=== PATIENT | male | born 1950 | race Caucasian/White ===

== ENCOUNTER 2018-02-20 12:06 | Inpatient (IN) | payer OTHER ==
[~2018-02-20] VITALS: Ht 177.8 cm; Wt 73.0 kg
[2018-02-20 12:22] VITALS: Ht 177.8 cm; Wt 73.0 kg
[2018-02-20 12:51] LABS: BASOPHIL % 0.2 % (0-2); PLATELET COUNT 155 x10^3mcL (130-400)
[2018-02-20 12:54] LABS: RED CELL DISTRIBUTION WIDTH 15.4 % (11.5-14.5)
[2018-02-20 12:57] LABS: CALCIUM 8.2 mg/dL (8.5-10.1); CARBON DIOXIDE 24.4 mmol/L (21-32); CHLORIDE SERUM 109 mmol/L (98-107); CREATININE SERUM 1.2 mg/dL (0.7-1.3); GFR1 > 60 mL/min; GLUCOSE SERUM 105 mg/dL (74-106); POTASSIUM SERUM 4.5 mmol/L (3.5-5.1); SODIUM SERUM 142 mmol/L (136-145)
[2018-02-20 13:02] LABS: ALKALINE PHOSPHATASE 75 U/L (46-116); ALT/SGPT 80 U/L (16-63); AST/SGOT 46 U/L (15-37); BILIRUBIN TOTAL 1.1 mg/dL (0.20-1.00)
[2018-02-20 13:06] LABS: ALBUMIN 2.9 g/dL (3.4-5.0); TOTAL PROTEIN, SERUM 5.7 g/dL (6.4-8.2)
[2018-02-20] MEDS ORDERED: ASPIR LOW81 MG PO (13:17)
[2018-02-20] MEDS ORDERED: NOR10 PO (13:17)
[2018-02-20] MEDS ORDERED: ATROVENT H0.017 MG/1 (13:17)
[2018-02-20] MEDS ORDERED: COLACE100 MG PO (13:18)
[2018-02-20] MEDS ORDERED: ARTHRITIS PAI42.5 GM (13:18)
[2018-02-20] MEDS ORDERED: FIBER LAX625 MG PO (13:19)
[2018-02-20] MEDS ORDERED: DULERA1 AR3 INH (13:19)
[2018-02-20] MEDS ORDERED: PROSCAR5 MG PO (13:20)
[2018-02-20] MEDS ORDERED: NAPROSYN500 MG PO (13:20)
[2018-02-20] MEDS ORDERED: FLO4 PO (13:20)
[2018-02-20] MEDS ORDERED: XOPENEX1.25 MG/3 (13:21)
[2018-02-20 15:00] VITALS: BP 114/78
[2018-02-20 15:01] VITALS: BP 124/84
[2018-02-20 16:40] VITALS: BP 114/84
[2018-02-20 21:10] VITALS: BP 113/82
[2018-02-21 05:53] VITALS: BP 122/85
[2018-02-21 06:27] LABS: PLATELET COUNT 179 x10^3mcL (130-400)
[2018-02-21 06:39] LABS: CALCIUM 8.3 mg/dL (8.5-10.1); CARBON DIOXIDE 21.3 mmol/L (21-32); CHLORIDE SERUM 109 mmol/L (98-107); GFR1 > 60 mL/min; GLUCOSE SERUM 144 mg/dL (74-106); POTASSIUM SERUM 4.3 mmol/L (3.5-5.1); SODIUM SERUM 141 mmol/L (136-145)
[2018-02-21 06:44] LABS: BASOPHIL % 0 % (0-2); RED CELL DISTRIBUTION WIDTH 15.1 % (11.5-14.5)
[2018-02-21 11:38] VITALS: BP 118/77
[2018-02-21 18:24] VITALS: BP 115/81
[2018-02-21 21:02] VITALS: BP 113/71
[2018-02-22 05:28] VITALS: BP 123/88
[2018-02-22 08:57] VITALS: BP 110/82
[2018-02-22 11:13] LABS: PLATELET COUNT 219 x10^3mcL (130-400)
[2018-02-22 11:14] LABS: BASOPHIL % 0 % (0-2); RED CELL DISTRIBUTION WIDTH 14.9 % (11.5-14.5)
[2018-02-22 11:26] VITALS: BP 102/75
[2018-02-22 14:33] LABS: CALCIUM 8.8 mg/dL (8.5-10.1); CARBON DIOXIDE 20.1 mmol/L (21-32); CHLORIDE SERUM 108 mmol/L (98-107); CREATININE SERUM 0.8 mg/dL (0.7-1.3); GFR1 > 60 mL/min; GLUCOSE SERUM 104 mg/dL (74-106); POTASSIUM SERUM 4.4 mmol/L (3.5-5.1); SODIUM SERUM 141 mmol/L (136-145)
[2018-02-22 16:20] VITALS: BP 117/81
[2018-02-22 22:09] VITALS: BP 108/75
[2018-02-23 06:11] VITALS: BP 128/93
[2018-02-23 10:20] VITALS: BP 143/93
[2018-02-23 12:31] VITALS: BP 143/93
[2018-02-23 14:05] VITALS: BP 120/73
[2018-02-23 17:48] VITALS: BP 129/72
[2018-02-23 20:38] VITALS: BP 108/71
[2018-02-24 05:41] VITALS: BP 122/81
[2018-02-24 07:52] LABS: CALCIUM 8.8 mg/dL (8.5-10.1); CARBON DIOXIDE 28.3 mmol/L (21-32); CHLORIDE SERUM 102 mmol/L (98-107); GFR1 > 60 mL/min; GLUCOSE SERUM 117 mg/dL (74-106); SODIUM SERUM 139 mmol/L (136-145)
[2018-02-24 07:58] LABS: PLATELET COUNT 266 x10^3mcL (130-400); RED CELL DISTRIBUTION WIDTH 14.4 % (11.5-14.5)
[2018-02-24 09:33] VITALS: BP 108/76
[2018-02-24 10:51] LABS: BAND NEUTROPHIL 3 % (0-10); BASOPHIL 0 % (0-2); MONOCYTE 5 % (0-7); PLATELET MORPHOLOGY PLATELETS NORMAL; SEGMENTED NEUTROPHILS 89 % (37-75)
[2018-02-24 14:13] VITALS: BP 112/73
[2018-02-24 18:10] VITALS: BP 118/76
[2018-02-24 20:23] VITALS: BP 116/85
[2018-02-25 05:29] VITALS: BP 126/93
[2018-02-25 07:59] LABS: CALCIUM 8.8 mg/dL (8.5-10.1); CARBON DIOXIDE 28.1 mmol/L (21-32); CHLORIDE SERUM 103 mmol/L (98-107); GFR1 > 60 mL/min; GLUCOSE SERUM 108 mg/dL (74-106); POTASSIUM SERUM 4.1 mmol/L (3.5-5.1); SODIUM SERUM 138 mmol/L (136-145)
[2018-02-25 08:41] LABS: PLATELET COUNT 268 x10^3mcL (130-400); RED CELL DISTRIBUTION WIDTH 14.5 % (11.5-14.5)
[2018-02-25 09:42] LABS: BAND NEUTROPHIL 3 % (0-10); MONOCYTE 6 % (0-7); SEGMENTED NEUTROPHILS 87 % (37-75); rbc morphology (normal/abnorm) NORMAL (NORMAL)
[2018-02-25 10:12] VITALS: BP 108/66
[2018-02-25 13:28] VITALS: BP 110/74
[2018-02-25 16:31] VITALS: BP 109/69
[2018-02-25 21:08] VITALS: BP 110/78
[2018-02-26 06:00] VITALS: BP 105/76
[2018-02-26 07:13] LABS: CALCIUM 8.6 mg/dL (8.5-10.1); CARBON DIOXIDE 26.2 mmol/L (21-32); CHLORIDE SERUM 104 mmol/L (98-107); CREATININE SERUM 0.8 mg/dL (0.7-1.3); GFR1 > 60 mL/min; GLUCOSE SERUM 106 mg/dL (74-106); POTASSIUM SERUM 4.2 mmol/L (3.5-5.1); SODIUM SERUM 136 mmol/L (136-145)
[2018-02-26 07:22] LABS: BASOPHIL % 0.1 % (0-2); PLATELET COUNT 257 x10^3mcL (130-400); RED CELL DISTRIBUTION WIDTH 13.5 % (11.5-14.5)
[2018-02-26 09:24] VITALS: BP 101/55
[2018-02-26 10:14] VITALS: BP 101/55
[2018-02-26 12:55] VITALS: BP 90/58
[2018-02-26 16:12] VITALS: BP 112/70
[2018-02-26 21:29] VITALS: BP 115/78
[2018-02-27 06:07] VITALS: BP 103/63
[2018-02-27 07:20] LABS: PLATELET COUNT 254 x10^3mcL (130-400)
[2018-02-27 07:23] LABS: RED CELL DISTRIBUTION WIDTH 14.8 % (11.5-14.5)
[2018-02-27 07:38] LABS: CALCIUM 8.3 mg/dL (8.5-10.1); CARBON DIOXIDE 25.3 mmol/L (21-32); CHLORIDE SERUM 102 mmol/L (98-107); CREATININE SERUM 0.8 mg/dL (0.7-1.3); GFR1 > 60 mL/min; GLUCOSE SERUM 123 mg/dL (74-106); POTASSIUM SERUM 4.3 mmol/L (3.5-5.1); SODIUM SERUM 134 mmol/L (136-145)
[2018-02-27 08:58] LABS: BAND NEUTROPHIL 4 % (0-10); BASOPHIL 0 % (0-2); MONOCYTE 5 % (0-7); PLATELET MORPHOLOGY PLATELETS NORMAL; SEGMENTED NEUTROPHILS 86 % (37-75)
[2018-02-27 09:30] VITALS: BP 108/72
[2018-02-27 13:35] VITALS: BP 97/65
[2018-02-27 14:23] VITALS: BP 97/65
== END 2018-02-27 17:10 | disposition other institution (70) | DRG 193 ==
LOC: ED 12:06 → DU 13:40
PROVIDERS: Emergency Medicine Emergency Medical Services; Internal Medicine; Internal Medicine Cardiovascular Disease
DX: J18.9 Pneumonia, unspecified organism (principal); J96.21 Acute and chronic respiratory failure with hypoxia; J44.1 Chronic obstructive pulmonary disease with (acute) exacerbation; J44.0 Chronic obstructive pulmonary disease with (acute) lower respiratory infection; I50.30 Unspecified diastolic (congestive) heart failure; N40.0 Benign prostatic hyperplasia without lower urinary tract symptoms; J20.9 Acute bronchitis, unspecified; I11.0 Hypertensive heart disease with heart failure; I08.1 Rheumatic disorders of both mitral and tricuspid valves; I27.20 Pulmonary hypertension, unspecified
CPT/HCPCS: 36600; 83880; J1644; J1940; J1956; J2920; J3490; J7030; J7512; J7613; J7620; J7626; J7644; Q0092; Q9967